=== PATIENT | male | born 1970 | race Two or more races ===

== ENCOUNTER 2022-08-29 10:51 | Inpatient (IN) | payer MEDICAID ==
[2022-08-27 10:54] LABS: Basophils # (auto) 0.1 10 ^3/uL (0-0.2); Basophils % (auto) 0.9 % (0.0-2.0); Eosinophils # (auto) 0.1 10 ^3/uL (0-0.8); Eosinophils % (auto) 2.1 % (0.0-7.0); Hematocrit 46.6 % (41.0-53.0); Hemoglobin 16.6 g/dL (13.5-17.5); Lymphocytes # (auto) 1.6 10 ^3/uL (0.4-5.4); Lymphocytes % (auto) 25.8 % (10.0-50.0); Mean Corpuscular Hemoglobin 32.9 pg (28.0-32.0); Mean Corpuscular Hgb Conc. 35.5 g/dL (32.0-36.0); Mean Corpuscular Volume 92.8 fL (80.0-100.0); Monocytes # (auto) 0.7 10 ^3/uL (0-1.3); Monocytes % (auto) 11.2 % (0.0-12.0); Neutrophils # (auto) 3.8 10 ^3/uL (1.6-8.6); Nucleated Red Blood Cells % 0.2 %; Red Blood Cells 5.02 10^6/uL (4.5-5.90); Red Cell Distribution Width 13.8 % (11.8-14.3); White Blood Cell 6.3 10^3/uL (4.4-10.8)
[2022-08-27 10:57] LABS: Urine Bacteria NONE SEEN /hpf (None Seen); Urine Blood Negative /uL (Negative); Urine Specific Gravity 1.014 (1.001-1.035); Urine WBC 1 /hpf (0 - 3)
[2022-08-27 11:34] LABS: Partial Thromboplastin Time 29.4 sec (24.6-33.4)
[2022-08-27 11:42] LABS: Albumin 3.7 g/dL (3.4-5.0); Calcium 8.9 mg/dL (8.5-10.1); Potassium 4.3 mmol/L (3.5-5.1)
[2022-08-27 11:45] LABS: BUN/Creatinine Ratio 16.3 (10.0-20.0); Bilirubin, Total 0.7 mg/dL (0.2-1.0); Total Protein 7.7 g/dL (6.4-8.2)
[~2022-08-29] VITALS: Ht 172.7 cm; Wt 102.0 kg
[~2022-08-29 10:51] MED LIST: AMLO1TAB23 PO; ASPI-543 PO; BENA40TA70 PO; GLIP5TAB12 PO; METF-370 PO; METO-159 PO; SIMV20TA20 PO
[2022-08-29] MEDS ORDERED: ceFAZolin 1GM/50ML 100 ML IV ONE (11:58)
[2022-08-29] MEDS ORDERED: CIPR500T4 PO ×2 (13:19→17:01)
[2022-08-29] MEDS ORDERED: HYDR-4902 PO ×2 (13:19→17:01)
[2022-08-29] MEDS ORDERED: BUPIVACAINE 0.25% INJ 50ML VIAL ONE (13:54)
[2022-08-29] MEDS ORDERED: MORPHINE SULFATE INJ 2 MG/ml SYRG IV PRN (15:45)
[2022-08-29] MEDS ORDERED: NITROGLYCERIN 0.4 MG SL TAB SL PRN (15:45)
[2022-08-29 16:10] VITALS: BP 173/95
[2022-08-29] MEDS ORDERED: ONDANSETRON HCL 4 MG/2 ML VIAL IV PRN (16:15)
[2022-08-29] MEDS ORDERED: traMADol HCL 50 MG TAB PO PRN (16:15)
[2022-08-29] MEDS ORDERED: ACETAMINOPHEN 500 MG TAB PO PRN (16:15)
[2022-08-29] MEDS ORDERED: amLODIPine BESYLATE 5 MG TAB PO ONE (16:15)
[2022-08-29] MEDS ORDERED: DEXTROSE (50%) 50ML SYRG IV PRN (16:15)
[2022-08-29] MEDS: ACCU-CHEK COMFORT CURVE STRIP VI SCH ×2 (16:57→22:00)
[2022-08-29] MEDS: InsuLIN REG 1unit/0.01ml Soln (100units/ml) SC SCH ×2 (17:15→23:37)
[2022-08-29 22:00] VITALS: BP 139/80
[2022-08-29] MEDS ORDERED: ATORVASTATIN 20 MG TAB PO SCH (22:00)
[2022-08-29] MEDS: ceFAZolin 2 GM/D5W100ml 100 ML IV SCH (22:00)
[2022-08-29] MEDS: METOPROLOL TARTRATE 50 MG TAB PO SCH (23:33)
[2022-08-30 05:00] VITALS: BP 148/85
[2022-08-30] MEDS: ACCU-CHEK COMFORT CURVE STRIP VI SCH ×2 (06:06→12:50)
[2022-08-30] MEDS: InsuLIN REG 1unit/0.01ml Soln (100units/ml) SC SCH ×2 (06:06→12:50)
[2022-08-30 07:10] LABS: Basophils # (auto) 0 10 ^3/uL (0-0.2); Basophils % (auto) 0.1 % (0.0-2.0); Eosinophils # (auto) 0 10 ^3/uL (0-0.8); Hematocrit 45.1 % (41.0-53.0); Hemoglobin 16.1 g/dL (13.5-17.5); Lymphocytes # (auto) 1.2 10 ^3/uL (0.4-5.4); Mean Corpuscular Hemoglobin 33.1 pg (28.0-32.0); Mean Corpuscular Hgb Conc. 35.8 g/dL (32.0-36.0); Mean Corpuscular Volume 92.3 fL (80.0-100.0); Monocytes # (auto) 0.5 10 ^3/uL (0-1.3); Monocytes % (auto) 4.5 % (0.0-12.0); Neutrophils % (auto) 84.4 % (37.0-80.0); Nucleated Red Blood Cells % 0.1 %; Red Blood Cells 4.88 10^6/uL (4.5-5.90); Red Cell Distribution Width 13.6 % (11.8-14.3); White Blood Cell 10.6 10^3/uL (4.4-10.8)
[2022-08-30 07:28] LABS: Potassium 3.8 mmol/L (3.5-5.1)
[2022-08-30 07:35] LABS: Albumin 3.3 g/dL (3.4-5.0); BUN/Creatinine Ratio 23.7 (10.0-20.0); Bilirubin, Total 0.6 mg/dL (0.2-1.0); Calcium 8.6 mg/dL (8.5-10.1)
[2022-08-30] MEDS: ceFAZolin 2 GM/D5W100ml 100 ML IV SCH ×2 (07:46→14:00)
[2022-08-30 09:46] VITALS: BP 142/77
[2022-08-30] MEDS ORDERED: BENAZEPRIL HCL 10 MG TAB PO SCH (10:00)
[2022-08-30] MEDS ORDERED: amLODIPine BESYLATE 5 MG TAB PO SCH (10:00)
[2022-08-30] MEDS ORDERED: AUG875T PO (10:01)
[2022-08-30] MEDS ORDERED: HYDR-4902 PO (10:01)
[2022-08-30] MEDS: METOPROLOL TARTRATE 50 MG TAB PO SCH (11:29)
[2022-08-30 12:14] VITALS: BP 145/76
[2022-08-30 12:53] VITALS: BP 142/77
[2022-09-01 12:44] LABS: Hepatitis C Antibody Negative (Negative)
== END 2022-08-30 15:06 | disposition home or self-care (01) | DRG 314 ==
LOC: SUR 10:51 → CENTRAL 16:50
PROVIDERS: ADMIT Student in an Organized Health Care Education/Training Program; ATTEND Student in an Organized Health Care Education/Training Program
PROC: 0SRP0JZ Replacement of Right Toe Phalangeal Joint with Synthetic Substitute, Open Approach (ICD-10-PCS; 2022-08-29)
PROC: 0QSN0ZZ Reposition Right Metatarsal, Open Approach (ICD-10-PCS; principal; 2022-08-29 13:58)
PROC: 0QSN0ZZ Reposition Right Metatarsal, Open Approach (ICD-10-PCS; 2022-08-29 13:58)
DX: M20.41 Other hammer toe(s) (acquired), right foot (principal); E11.9 Type 2 diabetes mellitus without complications; E78.5 Hyperlipidemia, unspecified; I10 Essential (primary) hypertension; E66.9 Obesity, unspecified; Z68.34 Body mass index [BMI] 34.0-34.9, adult
CPT/HCPCS: 36415; 73620; 73630; 76000; 80053; 81001; 82962; 83036; 85025; 85610; 85730; 86803; 87340; G0378; J0690; J1815; J3490